=== PATIENT | female | born 1990 | race Caucasian/White ===

== ENCOUNTER 2017-01-22 05:39 | Emergency (ER) | payer OTHER ==
[~2017-01-22 05:39] MED LIST: ALBUTEROL17 G1 PO; ALBUTEROL17 GM; BACTRIM DS TABL1 TA1 PO; CIPRO PO; CYMBALTA PO; DICLOFENAC PO; DIFLUCAN PO; ERYTHROMYCIN B500 MG PO; FLEXERIL10 MG PO; KLONOPIN PO; LOTRIMIN30 GM TOP; MACROBID100 MG PO; MOTRIN600 MG PO; NO MEDICATIONS; PRENATAL VITAMI1 TA3 PO; PYRIDIUM PO; TOPAMAX PO; ULTRAM PO; VICODIN 5/1 TAB 5/50 PO; VICODIN 5/500 T1 TAB PO; XANAX0.5 MG PO; ZOFRAN PO
[2017-01-22 05:59] LABS: BASOPHIL% 0.2 % (0-2.5); EOSINOPHIL% 0.3 % (0.0-7.0); HEMOGLOBIN 13.6 gm/dL (12.0-16.0); LYMPHOCYTE# 1.8 X10e3 (1.0-3.5); LYMPHOCYTE% 10.2 % (17.0-45.0); MEAN CELL VOLUME 80.9 FL (83-96); MEAN CORPUSCULAR HEMOGLOBIN 26.9 PG (28-34); MEAN CORPUSCULAR HGB CONC 33.2 g/dL (30-36); MEAN PLATELET VOLUME 8.4 FL (6.5-11.5); MONOCYTE# 1.6 X10e3 (0-1.0); MONOCYTE% 9.1 % (3.0-12.0); NEUTROPHIL# 14.1 X10e3 (1.5-7.1); NEUTROPHIL% 80.2 % (40-75); PLATELET COUNT 308 X10e3 (140-420); RED BLOOD COUNT 5.08 X10e (3.90-5.30); RED CELL DISTRIBUTION WIDTH 13.2 % (11.0-15.5); WHITE BLOOD COUNT 17.6 X10e3 (4.0-10.5)
[2017-01-22 06:02] LABS: DIFF IND NO
[2017-01-22 06:03] LABS: URINE SOURCE CLEAN CATCH
[2017-01-22 06:12] LABS: BUN/CREATININE RATIO 12.5; CALCIUM SERUM 9.2 mg/dL (8.4-10.2); CREATININE SERUM 0.8 mg/dL (0.6-1.4); GLOM FILT RATE Estimated 101.8 mL/min (>60); POTASSIUM 4.3 mmol/L (3.5-5.1)
[2017-01-22 06:22] LABS: URINE APPEARANCE CLEAR; URINE BILIRUBIN NEG (NEG); URINE BLOOD 2+ (NEG); URINE COLOR YELLOW; URINE GLUCOSE NEG (NEG); URINE KETONE NEG (NEG); URINE LEUKOCYTE ESTERASE NEG (NEG); URINE NITRATE NEG (NEG); URINE PH 6.5 (5-8); URINE PROTEIN NEG (NEG)
[2017-01-22 06:25] LABS: CULTURE INDICATED? YES; URINE BACTERIA AUWI 1+ (NEGATIVE); URINE SQUAMOUS EPITHELIAL CELL FEW /[HPF]
== END 2017-01-22 07:35 | disposition home or self-care (01) ==
LOC: CFTX 05:39
PROVIDERS: Nurse Practitioner
DX: L03.112 Cellulitis of left axilla (principal); F41.9 Anxiety disorder, unspecified; F32.9 Major depressive disorder, single episode, unspecified; Z88.5 Allergy status to narcotic agent
CPT/HCPCS: 36415; 80048; 81003; 84703; 85025; 87086; 96365; 99284; J2405

== ENCOUNTER 2017-01-30 02:01 | Emergency (ER) | payer OTHER ==
--- NOTE | ~2017-01-30 | CT55 ---
[facility] A Service of [facility] & [facility] RADIOLOGY TEXT RESULTS PATIENT: MIGUEL IBARRA LOCATION: [facility] : [birth year] UNIT #: [id number] AGE: [address]: Shaylee Fisher MD SEX: F ORDER DR: [id number] [facility] [address] [place], [place] [address] [id number] E MR#: [id number] Acc #: [id number] NAME: MIGUEL IBARRA. : 1990 SEX: F STUDY DATE/TIME: 01/30/2017 6:24 UNIT: [facility] ROOM: STUDY DESCRIPTION: CT Chest W Con Attending Physician: Shaylee Fisher M.D. Ordering Physician: Lam Abbott Aprn Primary Care Physician: No Primary Care Physician MEDICAL IMAGING REPORT This report is preliminary unless electronic signature is present EXAM CT chest with contrast. INDICATION Abscess left axillary region for three days, with pain in the left breast. TECHNIQUE The patient was given 70 mL of Isovue 70 and axial 5 mm images were obtained through the chest. This CT exam was performed with one or more of the following radiation dose reduction techniques: automatic exposure control, adjustment of mA and/or kV according to patient size, and iterative reconstruction. COMPARISON No comparison. FINDINGS There is a large irregular low density area in the left lower axilla. This extends up almost to the skin. It is about 3.9 x 5.1 x 5.6 cm and certainly could represent an abscess. It does not have a well-circumscribed border. There is mild inflammation around its margins. This is not in the breast. The aorta is normal in size. There is no mediastinal or hilar adenopathy. Visualized portions of the upper abdomen are normal. There is a noncalcified 9 mm nodule in the left lower lobe superiorly, otherwise the lungs are clear. There is a chest x-ray from 10/05/2013. The left lower lobe nodule is not visible on that exam. IMPRESSION 1. Noncalcified 9 mm nodule left lower lobe superior segment. It cannot be seen on the old chest x-ray from 11/05/2013. Unless there are STS. [facility] A Service of [facility] & [facility] RADIOLOGY TEXT RESULTS PATIENT: MIGUEL IBARRA LOCATION: [facility] : [birth year] UNIT #: [id number] AGE: [address]: NataliaDecember SEX: F ORDER DR: other old studies to document stability, it should probably be followed in six months with a repeat CT scan. Given the patient's age, this is likely benign. 2. There is an irregular low-density area in the left axilla. This is about 5.1 x 3.9 x 5.7 cm. Its borders are indistinct and this has inflammation of the fat surrounding it. It could represent an abscess. It extends almost up to the skin surface. 3. Otherwise the study is normal. Dictated by... Tj Sanchez M.D. THIS IS AN ELECTRONICALLY VERIFIED REPORT Tj Sanchez M.D. at 01/30/2017 2:19 PM FEL/gz TD: 01/30/2017 11:08 JOB #: [id number] MEDICAL IMAGING REPORT Page 1 of 1 COPY
[2017-01-30 05:22] LABS: BASOPHIL% 0.3 % (0-2.5); EOSINOPHIL# 0.1 X10e3 (0-0.7); EOSINOPHIL% 0.9 % (0.0-7.0); HEMATOCRIT 39.3 % (35.0-45.0); HEMOGLOBIN 13.2 gm/dL (12.0-16.0); LYMPHOCYTE# 3.3 X10e3 (1.0-3.5); LYMPHOCYTE% 33.2 % (17.0-45.0); MEAN CELL VOLUME 78.9 FL (83-96); MEAN CORPUSCULAR HEMOGLOBIN 26.5 PG (28-34); MEAN CORPUSCULAR HGB CONC 33.6 g/dL (30-36); MEAN PLATELET VOLUME 7.7 FL (6.5-11.5); MONOCYTE# 1.1 X10e3 (0-1.0); MONOCYTE% 10.6 % (3.0-12.0); NEUTROPHIL# 5.5 X10e3 (1.5-7.1); PLATELET COUNT 387 X10e3 (140-420); RED BLOOD COUNT 4.97 X10e (3.90-5.30); RED CELL DISTRIBUTION WIDTH 13.6 % (11.0-15.5)
[2017-01-30 05:38] LABS: DIFF IND NO
[2017-01-30 05:50] LABS: BILIRUBIN, DIRECT 0.1 mg/dL (0.0-0.2); BILIRUBIN,INDIRECT 0.4 mg/dL (0.0-0.9); BILIRUBIN,TOTAL 0.5 mg/dL (0.2-2.0); CALCIUM SERUM 9.3 mg/dL (8.4-10.2); GLOM FILT RATE Estimated 77.7 mL/min (>60); POTASSIUM 4.1 mmol/L (3.5-5.1); PROTEIN TOTAL SERUM 7.8 g/dL (6.0-8.3)
[2017-01-30 06:02] LABS: URINE APPEARANCE CLOUDY; URINE BILIRUBIN NEG (NEG); URINE BLOOD 3+ (NEG); URINE COLOR DK YELLOW; URINE GLUCOSE NEG (NEG); URINE KETONE NEG (NEG); URINE LEUKOCYTE ESTERASE 1+ (NEG); URINE NITRATE NEG (NEG); URINE PROTEIN NEG (NEG); URINE SPECIFIC GRAVITY 1.024 (1.003-1.035)
[2017-01-30 06:04] LABS: CULTURE INDICATED? YES; URINE BACTERIA AUWI 1+ (NEGATIVE); URINE SQUAMOUS EPITHELIAL CELL MOD /[HPF]
[2017-01-30 06:16] LABS: URINE MUCUS PRESENT
[2017-01-30 06:33] LABS: AMPHETAMINE POS (NEG); BARBITURATES NEG (NEG); BENZODIAZEPINES NEG (NEG); COCAINE NEG (NEG); MARIJUANA NEG (NEG); OPIATES NEG (NEG); TRICYCLIC ANTIDEPRESSANTS NEG (NEG); U METHADONE NEG (NEG)
== END 2017-01-30 11:12 | disposition home or self-care (01) ==
LOC: CED 02:01
PROVIDERS: Nurse Practitioner Family
DX: L02.412 Cutaneous abscess of left axilla (principal); L02.213 Cutaneous abscess of chest wall; L03.112 Cellulitis of left axilla; L03.313 Cellulitis of chest wall; F32.9 Major depressive disorder, single episode, unspecified; F41.9 Anxiety disorder, unspecified; F17.210 Nicotine dependence, cigarettes, uncomplicated; Z88.5 Allergy status to narcotic agent
CPT/HCPCS: 10060; 36415; 71260; 80048; 80076; 80307; 81003; 83605; 84703; 85025; 87040; 87086; 96361; 96365; 96375; 99284; J1200; J2405; J2930; Q9967

== ENCOUNTER 2017-01-31 12:39 | Emergency (ER) | payer OTHER | END 2017-01-31 13:15 | disposition home or self-care (01) | LOC: CFTX 12:39 → CED 12:39 → CFTX 13:06 | DX: Z48.01 Encounter for change or removal of surgical wound dressing (principal); F17.210 Nicotine dependence, cigarettes, uncomplicated | CPT/HCPCS: 99281 ==

== ENCOUNTER 2017-05-21 11:55 | Emergency (ER) | payer OTHER ==
[~2017-05-21] VITALS: Ht 170.2 cm; Wt 95.2 kg
== END 2017-05-21 12:56 | disposition home or self-care (01) ==
LOC: CED 11:55
DX: K04.7 Periapical abscess without sinus (principal); F17.200 Nicotine dependence, unspecified, uncomplicated; F41.8 Other specified anxiety disorders; Z88.8 Allergy status to other drugs, medicaments and biological substances; Z88.5 Allergy status to narcotic agent
CPT/HCPCS: 99283